=== PATIENT | female | born 1980 | race Caucasian/White ===

== ENCOUNTER 2017-02-24 13:21 | Emergency (ER) | payer BC ==
[~2017-02-24] VITALS: Ht 165.1 cm; Wt 50.8 kg
[2017-02-24 13:33] VITALS: BP 110/67
[2017-02-24] MEDS ORDERED: ASPIRIN 81 MG TAB.CHEW PO ONE (13:45)
[2017-02-24] MEDS ORDERED: IV NORMAL SALINE 1,000ML 1,000 ML IV SCH (14:01)
--- NOTE | 2017-02-24 14:07 | PHYS DOC ---
General Chief Complaint: CHEST PAIN Stated Complaint: CHEST DISCOMFORT Time Seen by MD: 13:28 Source: patient Exam Limitations: no limitations Problems: History of Present Illness Initial Comments Pt is 36/F to ED c/o chest tightness. Pt states that 01/11 this year she was diagnosed breast cancer. She underwent b/ l mastectomy on 01/31 and port placement this past week L chest. She had been doing well until she woke this morning feeling chest tightness. States she has h/o "eating disorder" and anxiety, hasn't been eating/drinking well. She feels her sx likely due to anxiety but she called her doctor this am and they directed her to nearest ED to r/o PE. Pt had seizure during port placement last week, states she saw neurology/CT head. No cause for seizure identified but "they said I probably wouldn't have another one." Timing/Duration: 4-6 hours Severity: moderate Modifying Factors: improves with other Associated Symptoms: chest pain, shortness of breath, other Allergies: Coded Allergies: No Known Drug Allergies (Unverified , 02/24/17) Past Medical History Medical History: other (breast cancer, eating disorder) Surgical History: other (bilateral mastectomy) Social History Smoker: quit greater than 1 year Alcohol: occasionally Drugs: none Review of Systems Constitutional: denies chills, denies fever, denies malaise Respiratory: see HPIdenies cough, denies orthopnea, denies wheezing Cardiovascular: chest paindenies palpitations, denies syncope Gastrointestinal: denies diarrhea, denies nausea, denies vomiting Musculoskeletal: denies back pain, denies joint swelling, denies neck pain Psychiatric/Neurological: see HPIdenies headache, denies numbness, denies paresthesia, denies weakness Hematologic/Lymphatic: denies blood clots, denies easy bleeding, denies easy bruising Physical Exam General Appearance: thin (anxious but NAD) Eyes: bilateral eye EOMI, bilateral eye PERRL, bilateral eye normal inspection Ear, Nose, Throat: hearing grossly normal, normal ENT inspection (dry membranes ), normal pharynx Neck: non-tender, supple Respiratory: normal breath sounds, no respiratory distress, other (post-op tenderness, appropriate) Cardiovascular: regular rate, rhythm, no edema Gastrointestinal: non tender, soft Back: no CVA tenderness, no vertebral tenderness Extremities: non-tender, normal inspection 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 Chest AP: no acute cardiopulmonary process PATIENT: CARO HARDY ACCOUNT: [id number] : 1980 LOCATION: ER AGE: 36 SEX: F EXAM STATUS: REG ER ORD. PHYSICIAN: CARSON LONGORIA DO REASON: breast CA s/p b/l mastectomy 01/31, sudden SOB today PROCEDURE: CTA CHEST EXAM: CT angiogram of the chest with intravenous contrast. HISTORY: Shortness of breath. Breast cancer. TECHNIQUE: Computed tomographic images of the chest were obtained following the administration of 75 cc Omnipaque 300 intravenous contrast. Three-vessel maximum intensity projection images were obtained. One or more of the following individualized dose reduction techniques were utilized for this examination: 1. Automated exposure control. 2. Adjustment of the mA and/or kV according to patient size. 3. Use of iterative reconstruction technique. COMPARISON: None. FINDINGS: There is no evidence of pulmonary embolism. The heart is normal in size. No pathologically enlarged mediastinal or hilar lymph node is seen. There is a left chest wall port catheter with the tip in the superior cavoatrial junction. There are findings consistent with bilateral mastectomies and right axillary lymph node dissection. There is stranding and soft tissue density within the right axilla possibly due to postoperative scarring. There is no pneumothorax or pleural effusion. There is minimal posterior dependent and basilar atelectasis. No suspicious pulmonary nodule is seen. The upper abdomen is unremarkable. There is no suspicious osseous lesion. IMPRESSION: 1. No acute thoracic finding. Specifically, no evidence of pulmonary embolism. 2. Findings is with bilateral mastectomies and right axillary lymph node dissection. There is fatty stranding and increased soft tissue density within the right axilla which may be due to postoperative scarring. 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 Sx resolved after ativan IV. Pt requests discharge, has h/u appt tomorrow with oncology. Departure Time of Disposition: 16:02 Disposition: 01 HOME, SELF-CARE Diagnosis: anxiety, breast CA s/p b/l mastectomy Condition: IMPROVED Patient Instructions: Anxiety and Panic Attacks, [id number] Additional Instructions: Continue current meds including xanax. Rest, no strenuous activity. Follow up with your doctor tomorrow as scheduled; remember to take your lab results and disk of your imaging studies. Return to ED with new or changing symptoms. CARSON LONGORIA DO Feb 24, 2017 14:07
--- NOTE | 2017-02-24 14:18 | EKG ---
[address] [address] Test Date: 2017-02-24 Test Time: 13:50:40 Pat Name: CARO HARDY Department: Room: Gender: F Aligning Checker: JAXSON : 1980 Requested By: CARSON LONGORIA Order Number: [id number] Reading MD: Measurements Intervals [place] Rate: 73 P: 65 NH: 106 QRS: 87 QRSD: 82 T: 46 QT: 426 QTc: 473 Interpretive Statements SINUS RHYTHM R-S TRANSITION ZONE IN V LEADS DISPLACED TO THE LEFT PROLONGED QT NO SPECIFIC ECG ABNORMALITIES RI6.01 Unconfirmed report No previous ECG available for comparison
[2017-02-24] MEDS ORDERED: LIDO:MAALOX 1:1 20 ML SINGLE DOSE PO ONE (14:30)
[2017-02-24] MEDS ORDERED: FAMOTIDINE 20 MG/2 ML VIAL IVP ONE (14:30)
[2017-02-24] MEDS ORDERED: LORAZEPAM 2 MG/ML VIAL IV ONE (14:30)
[2017-02-24 14:34] LABS: BASO % 1 % (0-3); EOS # 0.3 x10^3/uL (0.0-0.7); EOS % 4 % (0-3); HEMATOCRIT 43.5 % (36.0-47.0); HEMOGLOBIN 14.9 g/dL (12.0-15.5); LYMPH # 2.2 x10^3/uL (1.0-4.8); LYMPH % 27 % (24-48); MEAN CORPUSCULAR HEMOGLOBIN 32 pg (25-35); MEAN CORPUSCULAR HGB CONC 34 g/dL (31-37); MEAN CORPUSCULAR VOLUME 93 fL (79-100); MONO # 0.6 x10^3/uL (0.0-1.1); MONO % 7 % (0-9); NEUT # 5.1 x10^3uL (1.8-7.7); NEUT % 62 % (31-73); PLATELET COUNT 287 x10^3/uL (140-400); RED BLOOD COUNT 4.67 x10^6/uL (3.50-5.40); RED CELL DISTRIBUTION WIDTH 12.9 % (11.5-14.5); WHITE BLOOD COUNT 8.3 x10^3/uL (4.0-11.0)
[2017-02-24 14:49] LABS: ALBUMIN 4.2 g/dL (3.4-5.0); ALBUMIN/GLOBULIN RATIO 1.1 (1.0-1.7); CALCIUM 9.2 mg/dL (8.5-10.1); CREATININE 0.8 mg/dL (0.6-1.0); GFR 80.3; POTASSIUM 3.8 mmol/L (3.5-5.1); TOTAL BILIRUBIN 0.3 mg/dL (0.2-1.0)
[2017-02-24 14:53] LABS: AMPHETAMINE/METHAMPHETAMINE NEG (NEG); BARBITURATES NEG (NEG); BENZODIAZEPINES NEG (NEG); CANNABINOIDS NEG (NEG); COCAINE NEG (NEG); METHADONE NEG (NEG); OPIATES NEG (NEG); PHENCYCLIDINE NEG (NEG)
[2017-02-24 14:55] LABS: BILIRUBIN,URINE NEG (NEG); CLARITY,URINE HAZY; COLOR,URINE YELLOW; GLUCOSE,URINE NEG (NEG)
[2017-02-24 14:56] LABS: NITRITE,URINE NEG (NEG); UROBILINOGEN,URINE 0.2 mg/dL (0.2 mg/dL)
[2017-02-24 14:58] LABS: BACTERIA,URINE 0 /HPF (0-FEW); SQUAMOUS EPITHELIAL CELL,UR FEW /LPF; WBC,URINE OCC /HPF (0-4)
[2017-02-24 14:59] LABS: HYALINE CASTS, URINE OCC /HPF
[2017-02-24] MEDS ORDERED: IOHEXOL 300 MG/ML 75 ML VIAL. IV ONE (15:30)
--- NOTE | 2017-02-24 15:45 | RAD ---
EXAM: CT angiogram of the chest with intravenous contrast. HISTORY: Shortness of breath. Breast cancer. TECHNIQUE: Computed tomographic images of the chest were obtained following the administration of 75 cc Omnipaque 300 intravenous contrast. Three-vessel maximum intensity projection images were obtained. One or more of the following individualized dose reduction techniques were utilized for this examination: 1. Automated exposure control. 2. Adjustment of the mA and/or kV according to patient size. 3. Use of iterative reconstruction technique. COMPARISON: None. FINDINGS: There is no evidence of pulmonary embolism. The heart is normal in size. No pathologically enlarged mediastinal or hilar lymph node is seen. There is a left chest wall port catheter with the tip in the superior cavoatrial junction. There are findings consistent with bilateral mastectomies and right axillary lymph node dissection. There is stranding and soft tissue density within the right axilla possibly due to postoperative scarring. There is no pneumothorax or pleural effusion. There is minimal posterior dependent and basilar atelectasis. No suspicious pulmonary nodule is seen. The upper abdomen is unremarkable. There is no suspicious osseous lesion. IMPRESSION: 1. No acute thoracic finding. Specifically, no evidence of pulmonary embolism. 2. Findings is with bilateral mastectomies and right axillary lymph node dissection. There is fatty stranding and increased soft tissue density within the right axilla which may be due to postoperative scarring.
--- NOTE | 2017-02-24 15:46 | RAD ---
EXAM: Chest, single view. HISTORY: Shortness of breath. COMPARISON: None. FINDINGS: A frontal view of the chest is obtained. There is no infiltrate, effusion or pneumothorax. The heart is normal in size. There is a left port catheter with the tip in the superior vena cava. There are bilateral axillary clips and bilateral mastectomies. IMPRESSION: No acute pulmonary finding.
== END 2017-02-24 16:13 | disposition home or self-care (01) ==
LOC: ER 13:21
DX: F41.9 Anxiety disorder, unspecified (principal); R07.89 Other chest pain; Z90.13 Acquired absence of bilateral breasts and nipples; Z87.891 Personal history of nicotine dependence
CPT/HCPCS: 36415; 71010; 71275; 80053; 80305; 81001; 82550; 83605; 83880; 84484; 85027; 85379; 85610; 85730; 87040; 93005; 96361; 96374; 96375; 99285; J2060; S0028; G0481; J7030

== ENCOUNTER 2017-03-21 16:21 | Emergency (ER) | payer BC ==
[~2017-03-21] VITALS: Ht 165.1 cm; Wt 53.1 kg
[2017-03-21] MEDS ORDERED: DIPHTH,PERTUSS(ACELL),TET TOX 0.5 ML DISP.SYRIN. VAX IM ONE (17:00)
[2017-03-21] MEDS ORDERED: ACETAMINOPHEN 500 MG TABLET PO ONE (17:15)
[2017-03-21] MEDS ORDERED: AMOX1TAB61 PO (17:23)
--- NOTE | 2017-03-21 17:23 | PHYS DOC ---
Past History Past Medical History: Cancer Past Surgical History: Cancer Surgery Alcohol Use: Occasionally Drug Use: None Adult General Chief Complaint Chief Complaint: ANIMAL BITE HPI HPI 36-year-old female who presents after she picked up a squirrel from the ground that was injured and had a small bite to her right index finger. She has a small skin bite to the distal portion of the dorsum of the right index finger just distal to the PIP joint of that finger. Patient is currently undergoing chemotherapy for breast CA. She is also status post masectomy for this in the last several months. She denies any significant medical problems otherwise. She has full range of motion in the affected digit. She has full sensation distal to the injury. Review of Systems Review of Systems Constitutional: Denies fever or chills [] Eyes: Denies change in visual acuity, redness, or eye pain [] HENT: Denies nasal congestion or sore throat [] Respiratory: Denies cough or shortness of breath [] Cardiovascular: No additional information not addressed in HPI [] GI: Denies abdominal pain, nausea, vomiting, bloody stools or diarrhea [] : Denies dysuria or hematuria [] Musculoskeletal: Denies back pain or joint pain [] Integument: Denies rash or skin lesions [] Neurologic: Denies headache, focal weakness or sensory changes [] Endocrine: Denies polyuria or polydipsia [] Current Medications Current Medications Current Medications Medications (Trade) Dose Ordered Sig/Kaylyn Start Time Stop Time Status Last Admin Dose Admin Acetaminophen (Tylenol) 1,000 mg 1X ONCE 03/21/17 17:15 03/21/17 17:16 03/21/17 16:58 1,000 MG Amoxicillin/ Clavulanate Potassium (Augmentin 875/ 125mg) 1 tab 1X ONCE 03/21/17 17:15 03/21/17 17:16 UNV Diphtheria/ Tetanus/Acell Pertussis (Boostrix) 0.5 ml ONCE ONCE 03/21/17 17:00 03/21/17 17:01 DC 03/21/17 16:58 0.5 ML Allergies Allergies Allergies Coded Allergies Type Severity Reaction Last Updated Verified No Known Drug Allergies 02/24/17 No Physical Exam Physical Exam Constitutional: Well developed, well nourished, no acute distress, non-toxic appearance. [] HENT: Normocephalic, atraumatic, bilateral external ears normal, oropharynx moist, no oral exudates, nose normal. [] Eyes: PERRLA, EOMI, conjunctiva normal, no discharge. [] Neck: Normal range of motion, no tenderness, supple, no stridor. [] Cardiovascular:Heart rate regular rhythm, no murmur [] Lungs & Thorax: Bilateral breath sounds clear to auscultation [] Abdomen: Bowel sounds normal, soft, no tenderness, no masses, no pulsatile masses. [] Skin: Warm, dry, no erythema, no rash. [] Back: No tenderness, no CVA tenderness. [] Extremities: Tenderness to the right index finger with a small bite wound to the area distal to the dorsum of the PIP joint, there is no significant swelling or deformity, there is no purulence noted, no cyanosis, no clubbing, ROM intact, no edema. [] Neurologic: Alert and oriented X 3, normal motor function, normal sensory function, no focal deficits noted. [] Psychologic: Affect normal, judgement normal, mood normal. [] Current Patient Data Vital Signs Vital Signs Date Time Temp Pulse Resp B/P Pulse Ox O2 Delivery O2 Flow Rate FiO2 03/21/17 16:21 98.5 80 20 96 Room Air EKG EKG [] Radiology/Procedures Radiology/Procedures [] Course & Med Decision Making Course & Med Decision Making Pertinent Labs and Imaging studies reviewed. (See chart for details) This 36 yo female who had a bite wound from a squirrel had the wound fully irrigated and her tetanus updated. Her first dose of antibiotics were given. She 'll be sent out with a prescription for antibiotics and told to follow closely with her primary care doctor in the next several days for wound eval. Return precautions were provided and acknowledged by the patient. Dragon Disclaimer Dragon Disclaimer This chart was dictated in whole or in part using Voice Recognition software in a busy, high-work load, and often noisy Emergency Department environment. It may contain unintended and wholly unrecognized errors or omissions. Departure Departure: Impression: Primary Impression: Bite wound Disposition: 01 HOME, SELF-CARE Condition: IMPROVED Referrals: HIEN WOLF (PCP) Patient Instructions: Animal Bite, [id number] Additional Instructions: Please take your antibiotic as prescribed. Return to the ER if you develop any worsening redness or pain or noticed any increase in swelling or pus drainage. Have your wound reevaluated by your primary care doctor in the next 2-3 days. Scripts Amoxicillin/Potassium Clav (Augmentin 875-125 Tablet)1 Each Tablet1 Tab PO BID # 20 TAB Prov:VANESSA NUNEZ DO 03/21/17 VANESSA NUNEZ DO Mar 21, 2017 17:23
[2017-03-21 17:24] VITALS: BP 100/55
[2017-03-21] MEDS ORDERED: AMOXICILLIN/K CLAV 875/125MG TABLET. PO ONE (17:30)
== END 2017-03-21 17:30 | disposition home or self-care (01) ==
LOC: ER 16:21
DX: S61.250A Open bite of right index finger without damage to nail, initial encounter (principal); Z85.3 Personal history of malignant neoplasm of breast; W53.21XA Bitten by squirrel, initial encounter; Y93.89 Activity, other specified; Y92.89 Other specified places as the place of occurrence of the external cause; Y99.8 Other external cause status
CPT/HCPCS: 90471; 90715; 99283-25

== ENCOUNTER 2017-04-18 06:07 | Emergency (ER) | payer BC ==
[~2017-04-18] VITALS: Ht 165.1 cm; Wt 53.1 kg
[~2017-04-18 06:07] MED LIST: AMOX1TAB61 PO
[2017-04-18] MEDS ORDERED: ONDANSETRON PF 4 MG/2 ML VIAL. IV ONE (07:00)
[2017-04-18] MEDS ORDERED: IV NORMAL SALINE 1,000ML 1,000 ML IV SCH (07:00)
[2017-04-18 07:09] LABS: BASO % 1 % (0-3); EOS # 0.1 x10^3/uL (0.0-0.7); EOS % 4 % (0-3); HEMATOCRIT 28.5 % (36.0-47.0); LYMPH # 0.9 x10^3/uL (1.0-4.8); LYMPH % 40 % (24-48); MEAN CORPUSCULAR HEMOGLOBIN 32 pg (25-35); MEAN CORPUSCULAR HGB CONC 35 g/dL (31-37); MEAN CORPUSCULAR VOLUME 92 fL (79-100); MONO % 1 % (0-9); NEUT # 1.2 x10^3uL (1.8-7.7); NEUT % 55 % (31-73); PLATELET COUNT 56 x10^3/uL (140-400); RED BLOOD COUNT 3.11 x10^6/uL (3.50-5.40); RED CELL DISTRIBUTION WIDTH 13.5 % (11.5-14.5); WHITE BLOOD COUNT 2.3 x10^3/uL (4.0-11.0)
[2017-04-18 07:15] LABS: CALCIUM 8.5 mg/dL (8.5-10.1); CREATININE 0.5 mg/dL (0.6-1.0); GFR 138.1; POTASSIUM 3.8 mmol/L (3.5-5.1)
[2017-04-18] MEDS: MORPHINE SULFATE 4 MG/ML DISP.SYRIN. IV/SQ PRN ×3 (07:31→09:52)
[2017-04-18 08:28] LABS: % ATYL 1 % (0-0); % BANDS 5 % (0-9); % BASOS 1 % (0-3); % EOS 3 % (0-5); % LYMPHS 51 % (24-48); % MONOS 4 % (0-10); % SEGS 35 % (35-66); MICROCYTOSIS PRESENT; PLT ESTIMATE DECREASED (ADEQUATE); TOXIC GRANULATION PRESENT
--- NOTE | 2017-04-18 08:35 | RAD ---
Indication nausea and abdominal pain. A single view of the chest as well as flat and upright films of the abdomen were obtained. The chest is compared to a study 02/24/2017. The heart and pulmonary vessels appear normal. The lungs are clear of acute infiltrates. Significant pleural fluid is not seen. There is no pneumothorax. A left Port-A-Cath is noted. The graft there is no free air. The abdominal gas pattern is normal. No organomegaly or abnormal calculi are seen. IMPRESSION: No acute finding seen in the chest or abdomen on plain films
[2017-04-18] MEDS ORDERED: LIDO:MAALOX 1:1 20 ML SINGLE DOSE PO ONE (08:45)
--- NOTE | 2017-04-18 08:47 | RAD ---
CT of the head without contrast, 04/18/2017: History: Headache, nausea, breast cancer The ventricles are within normal limits in size. There is no shift of the midline structures. There is no evidence of acute intracranial hemorrhage or mass effect. IMPRESSION: 1. The CT of the head without contrast reveals no significant abnormality. 2. If there is a high clinical suspicion of an occult intracranial metastasis, MR scanning with gadolinium would be more a sensitive method of further evaluation. PQRS Compliance Statement: One or more of the following individualized dose reduction techniques were utilized for this examination: 1. Automated exposure control 2. Adjustment of the mA and/or kV according to patient size 3. Use of iterative reconstruction technique
--- NOTE | 2017-04-18 09:22 | PHYS DOC ---
General Chief Complaint: HEADACHE Stated Complaint: SEVERE HEADACHE,NAUSEA X 3 DAYS Time Seen by MD: 06:20 Source: patient Exam Limitations: no limitations Problems: History of Present Illness Initial Comments Pt is 36/F to ED c/o RAJPUT, nausea. Pt currently being treated for breast CA, has L chest port for chemo. Past 3 days pt with global RAJPUT worse with activity, nausea. Pt has h/o migraines, states this RAJPUT is different--much worse. No focal neurodefs, no unexplained wt loss. Oxycodone last night helped, RAJPUT still present upon waking this am. Has been eating/drinking less as she is usually sick to her stomach few days after chemo. Timing/Duration: constant (3 days) Severity: moderate Modifying Factors: worse with movement, improves with rest Associated Symptoms: headaches, malaise, nausea/vomiting Allergies: Coded Allergies: No Known Drug Allergies (Unverified , 02/24/17) Past Medical History Medical History: other (breast ca) Surgical History: other (mastectomy, port) Social History Smoker: non-smoker Alcohol: none Drugs: none Review of Systems Constitutional: denies chills, denies fever, malaise EENTM: denies eye pain, denies ear pain, denies throat swelling, denies mouth pain, denies mouth swelling Respiratory: denies cough, denies shortness of breath Cardiovascular: denies chest pain, denies palpitations Gastrointestinal: denies abdominal pain, denies diarrhea, nausea, denies vomiting Genitourinary: see HPI Musculoskeletal: denies back pain, denies joint swelling, denies neck pain Psychiatric/Neurological: headache, denies numbness, denies paresthesia Physical Exam General Appearance: moderate distress, thin Eyes: bilateral eye normal inspection, bilateral eye PERRL, bilateral eye EOMI Ear, Nose, Throat: hearing grossly normal, normal ENT inspection (dry membranes ) Neck: non-tender, supple Respiratory: normal breath sounds, no respiratory distress Cardiovascular: normal peripheral pulses, regular rate, rhythm Gastrointestinal: non tender, soft Back: no CVA tenderness, no vertebral tenderness Extremities: non-tender, normal inspection 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 PHYSICIAN: CARSON LONGORIA DO REASON: RAJPUT h/o breast ca PROCEDURE: CT HEAD WO CONTRAST CT of the head without contrast, 04/18/2017: History: Headache, nausea, breast cancer The ventricles are within normal limits in size. There is no shift of the midline structures. There is no evidence of acute intracranial hemorrhage or mass effect. IMPRESSION: 1. The CT of the head without contrast reveals no significant abnormality. 2. If there is a high clinical suspicion of an occult intracranial metastasis, MR scanning with gadolinium would be more a sensitive method of further evaluation. PQRS Compliance Statement: One or more of the following individualized dose reduction techniques were utilized for this examination: 1. Automated exposure control 2. Adjustment of the mA and/or kV according to patient size 3. Use of iterative reconstruction technique DICTATED AND SIGNED BY: QUINN LILLY MD DATE: 04/18/17842 CC: CARSON LONGORIA DO; HIEN WOLF ~ PATIENT: CARO HARDY ACCOUNT: [id number] : 1980 LOCATION: ER AGE: 36 SEX: F EXAM STATUS: REG ER ORD. PHYSICIAN: CARSON LONGORIA DO REASON: abd pain PROCEDURE: ACUTE ABDOMEN SERIES Indication nausea and abdominal pain. A single view of the chest as well as flat and upright films of the abdomen were obtained. The chest is compared to a study 02/24/2017. The heart and pulmonary vessels appear normal. The lungs are clear of acute infiltrates. Significant pleural fluid is not seen. There is no pneumothorax. A left Port-A-Cath is noted. The graft there is no free air. The abdominal gas pattern is normal. No organomegaly or abnormal calculi are seen. IMPRESSION: No acute finding seen in the chest or abdomen on plain films DICTATED AND SIGNED BY: KEVIN PEPPER MD DATE: 04/18/17829 CC: CARSON LONGORIA DO; HIEN WOLF ~ AAS: Images reviewed by me, no acute process WBC 2.3, Hb 10, Plt 56, (pancytopenia 2nd chemotherapy) otherwise unremarkable Pt feeling much better after results and IV fluids. She expressed agreement/ understanding with treatment plan. Departure Time of Disposition: 10:15 Disposition: 01 HOME, SELF-CARE Diagnosis: Headache, abdominal pain NOS Condition: STABLE Patient Instructions: Abdominal Pain (Nonspecific), Chemotherapy, General Headache Without Cause, [id number] Additional Instructions: Rest, no strenuous activity. Aggressive hydration with gatorade, water. Rx: percocet 7.5mg #20 Take meds with food and stool softeners. Follow up with your doctor by phone today, then follow up as directed. Return to ED with new or changing symptoms. CARSON LONGORIA DO April 18, 2017 09:22
[2017-04-18 10:03] LABS: BILIRUBIN,URINE NEG (NEG); CLARITY,URINE HAZY; COLOR,URINE YELLOW; GLUCOSE,URINE NEG (NEG); UROBILINOGEN,URINE 1 mg/dL (0.2 mg/dL)
[2017-04-18 10:04] LABS: BACTERIA,URINE FEW /HPF (0-FEW); HYALINE CASTS, URINE OCC /HPF; NITRITE,URINE NEG (NEG); RBC,URINE RARE /HPF (0-2); SQUAMOUS EPITHELIAL CELL,UR FEW /LPF
[2017-04-18] MEDS ORDERED: OXYC-327 PO (10:18)
[2017-04-18 10:20] VITALS: BP 102/62
== END 2017-04-18 10:50 | disposition home or self-care (01) ==
LOC: ER 06:07
DX: R51 Headache (principal); R10.9 Unspecified abdominal pain; R07.89 Other chest pain; Z85.3 Personal history of malignant neoplasm of breast
CPT/HCPCS: 36415; 70450; 74022; 80048; 81001; 82550; 83690; 84484; 85007; 85027; 87086; 96361; 96374; 96375; 96376; 99285; J2270; J2405; J7030

== ENCOUNTER 2017-09-23 14:42 | Emergency (ER) | payer BC ==
[~2017-09-23] VITALS: Ht 165.1 cm; Wt 53.1 kg
[~2017-09-23 14:42] MED LIST changes: +OXYC-327 PO
[2017-09-23] MEDS ORDERED: IPRATRPIUM/ALBUTEROL 0.5/2.5MG 3 ML NEBU. NEB ONE (15:15)
[2017-09-23] MEDS ORDERED: ASPIRIN 81 MG TAB.CHEW PO ONE (15:15)
[2017-09-23] MEDS ORDERED: NITROGLYCERIN SUBLINGUAL 0.4 MG BOTTLE OF 25. SL PRN (15:15)
[2017-09-23 15:36] LABS: BASO % 0 % (0-3); EOS % 1 % (0-3); HEMATOCRIT 41.7 % (36.0-47.0); HEMOGLOBIN 14.3 g/dL (12.0-15.5); LYMPH # 1.4 x10^3/uL (1.0-4.8); LYMPH % 21 % (24-48); MEAN CORPUSCULAR HEMOGLOBIN 31 pg (25-35); MEAN CORPUSCULAR HGB CONC 34 g/dL (31-37); MEAN CORPUSCULAR VOLUME 89 fL (79-100); MONO # 0.4 x10^3/uL (0.0-1.1); MONO % 6 % (0-9); NEUT # 4.8 x10^3uL (1.8-7.7); NEUT % 73 % (31-73); PLATELET COUNT 246 x10^3/uL (140-400); RED BLOOD COUNT 4.68 x10^6/uL (3.50-5.40); RED CELL DISTRIBUTION WIDTH 14.4 % (11.5-14.5); WHITE BLOOD COUNT 6.6 x10^3/uL (4.0-11.0)
[2017-09-23 15:40] LABS: AMPHETAMINE/METHAMPHETAMINE NEG (NEG); BARBITURATES NEG (NEG); BENZODIAZEPINES NEG (NEG); CANNABINOIDS NEG (NEG); COCAINE NEG (NEG); METHADONE NEG (NEG); OPIATES NEG (NEG); PHENCYCLIDINE NEG (NEG)
[2017-09-23 15:53] LABS: ALBUMIN 4.3 g/dL (3.4-5.0); ALBUMIN/GLOBULIN RATIO 1.2 (1.0-1.7); CALCIUM 9.2 mg/dL (8.5-10.1); CREATININE 0.7 mg/dL (0.6-1.0); GFR 93.6; POTASSIUM 3.6 mmol/L (3.5-5.1); TOTAL BILIRUBIN 0.5 mg/dL (0.2-1.0); TOTAL PROTEIN 7.8 g/dL (6.4-8.2)
[2017-09-23 16:01] LABS: BACTERIA,URINE FEW /HPF (0-FEW); BILIRUBIN,URINE NEG (NEG); CLARITY,URINE CLEAR; COLOR,URINE STRAW; GLUCOSE,URINE NEG (NEG); NITRITE,URINE NEG (NEG); SQUAMOUS EPITHELIAL CELL,UR MANY /LPF; UROBILINOGEN,URINE 0.2 mg/dL (0.2 mg/dL)
--- NOTE | 2017-09-23 16:01 | RAD ---
Indication chest pain. Productive cough. Prior history of bilateral mastectomy. Frontal and lateral views of the chest were obtained and are compared to a study 04/18/2017. The heart, pulmonary vessels and mediastinum appear normal. The lungs are clear. Bony structures appear intact. Port-A-Cath is no longer seen. IMPRESSION: No acute finding in the chest
--- NOTE | 2017-09-23 16:21 | PHYS DOC ---
General Chief Complaint: CHEST PAIN Stated Complaint: CHEST PAIN Time Seen by MD: 14:49 Source: patient, old records Exam Limitations: no limitations Problems: History of Present Illness Initial Comments Patient is a 36-year-old female with history of breast cancer now in remission who comes to the emergency department with cough and chest tightness. Patient states that last night he developed a dry cough and chest tightness first noticed at 2200. She has had those symptoms persistently since that time, no sputum production fever chills or body aches, she states she had some diaphoresis last night that is her baseline. No nausea vomiting arm or neck symptoms and she denies shortness of breath or dyspnea on exertion. She denies new recent weight loss, she has history of right breast cancer status post bilateral mastectomy performed January 31, 2017. Her last chemotherapy treatment was July 03, 2017 she is currently taking tamoxifen. No new or progressive symptoms since 2200 last night, vital signs are normal in the emergency department she is afebrile no hypoxia. Symptoms did not improve with aspirin and nitroglycerin by mouth. Timing/Duration: intermittent Severity: mild Modifying Factors: improves with other Associated Symptoms: chest pain, cough, diaphoresis Allergies: Coded Allergies: No Known Drug Allergies (Unverified , 02/24/17) Past Medical History Medical History: other (anxiety, breast cancer, depression) Surgical History: noncontributory (bilateral mastectomy), other Social History Smoker: non-smoker Alcohol: none Drugs: none Review of Systems Constitutional: denies chills, diaphoresis, denies fever, denies malaise EENTM: denies ear pain, denies nose pain, denies nose congestion, denies throat pain, denies mouth pain Respiratory: cough, denies orthopnea, denies shortness of breath, denies wheezing Cardiovascular: chest pain, denies palpitations, denies syncope Gastrointestinal: denies abdominal pain, denies nausea, denies vomiting Musculoskeletal: denies back pain, denies joint swelling, denies neck pain Psychiatric/Neurological: denies headache, denies numbness, denies paresthesia Hematologic/Lymphatic: denies blood clots, denies easy bleeding, denies easy bruising Physical Exam General Appearance: no apparent distress, thin Ear, Nose, Throat: hearing grossly normal, normal ENT inspection, normal pharynx Neck: non-tender, supple Respiratory: other (patient received DuoNeb on arrival, evaluation after DuoNeb reveals lungs are clear good air movement no rales rhonchi or wheezes no respiratory distress chest is nontender) Cardiovascular: normal peripheral pulses, regular rate, rhythm, no edema Gastrointestinal: non tender, soft Back: no CVA tenderness, no vertebral tenderness Extremities: non-tender, normal inspection, no pedal edema 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 PHYSICIAN: CARSON LONGORIA DO REASON: cp PROCEDURE: CHEST PA & LATERAL Indication chest pain. Productive cough. Prior history of bilateral mastectomy. Frontal and lateral views of the chest were obtained and are compared to a study 04/18/2017. The heart, pulmonary vessels and mediastinum appear normal. The lungs are clear. Bony structures appear intact. Port-A-Cath is no longer seen. IMPRESSION: No acute finding in the chest DICTATED AND SIGNED BY: KEVIN PEPPER MD DATE: 09/23/17 1557 CC: CARSON LONGORIA DO; HIEN WOLF COMPUTER ENGINEERING TECHNOLOGIST-C ~ Labs unremarkable, BNP 137 urinalysis contaminated with squamous cells culture and sensitivity pending. I discussed results with the patient at length. Given her improvement with DuoNeb, reassuring lab evaluation greater than 12 hours after symptom onset no emergent cause identified. Because of her immunocompromised status we'll discharge home with Z-Demarcus and for symptomatic treatment of albuterol inhaler. First dose of Zithromax given in the emergency department. Signs and symptoms to monitor, indications for urgent return discussed at length with the patient. Her questions were answered she agrees to follow-up and expressed agreement and understanding of treatment plan. Departure Time of Disposition: 17:03 Disposition: 01 HOME, SELF-CARE Diagnosis: bronchitis with bronchial restriction, immunocompr Condition: IMPROVED Patient Instructions: Acute Bronchitis, [id number] Additional Instructions: Activity as tolerated, avoid environmental allergens, smoke, and extremes of temperature. Continue current medications. [id number] cetirizine and a.m., diphenhydramine 4 PM symptoms. Prescription: Zithromax, albuterol inhaler Follow-up with your doctor in 2-3 days for recheck. Return to the ED with new or changing symptoms. CARSON LONGORIA DO Sep 23, 2017 16:21
[2017-09-23] MEDS ORDERED: AZIT250T PO (16:53)
[2017-09-23] MEDS ORDERED: ALBU18HF IH (16:55)
[2017-09-23 17:00] VITALS: BP 118/54
[2017-09-23] MEDS ORDERED: AZITHROMYCIN 250 MG TABLET. PO ONE (17:15)
--- NOTE | 2017-09-23 18:24 | EKG ---
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
== END 2017-09-23 17:09 | disposition home or self-care (01) ==
LOC: ER 14:42
DX: J40 Bronchitis, not specified as acute or chronic (principal); F41.9 Anxiety disorder, unspecified; F32.9 Major depressive disorder, single episode, unspecified; Z90.13 Acquired absence of bilateral breasts and nipples
CPT/HCPCS: 36415; 71020; 80053; 80307; 81001; 82550; 83880; 84484; 85025; 87086; 93005; 94640; 99285; J0456; J7620; G0479

== ENCOUNTER 2018-05-05 15:57 | Emergency (ER) | payer BC ==
[~2018-05-05] VITALS: Ht 165.1 cm; Wt 57.5 kg
[2018-05-05 15:57] VITALS: BP 126/71
[~2018-05-05 15:57] MED LIST changes: +ALBU18HF IH; +AZIT250T PO
[2018-05-05 16:45] LABS: BASO % 0 % (0-3); EOS % 0 % (0-3); HEMATOCRIT 40.2 % (36.0-47.0); HEMOGLOBIN 14.2 g/dL (12.0-15.5); LYMPH # 0.8 x10^3/uL (1.0-4.8); LYMPH % 11 % (24-48); MEAN CORPUSCULAR HEMOGLOBIN 33 pg (25-35); MEAN CORPUSCULAR HGB CONC 35 g/dL (31-37); MEAN CORPUSCULAR VOLUME 93 fL (79-100); MONO # 0.3 x10^3/uL (0.0-1.1); MONO % 5 % (0-9); NEUT # 5.7 x10^3uL (1.8-7.7); NEUT % 84 % (31-73); PLATELET COUNT 371 x10^3/uL (140-400); RED BLOOD COUNT 4.32 x10^6/uL (3.50-5.40); RED CELL DISTRIBUTION WIDTH 12.1 % (11.5-14.5); WHITE BLOOD COUNT 6.9 x10^3/uL (4.0-11.0)
[2018-05-05] MEDS ORDERED: HALOPERIDOL LACT 5 MG/ML VIAL. IVP ONE (16:45)
--- NOTE | 2018-05-05 16:55 | ED.ADGEN ---
Past History Past Medical History: Anxiety, Cancer, Depression, Other Past Surgical History: Cancer Surgery, Other Alcohol Use: None Drug Use: None Adult General Chief Complaint Chief Complaint Abdominal pain HPI HPI Patient is a 37-year-old female with history of anxiety depression, breast cancer with double mastectomy currently in remission who presents with intermittent epigastric pain described as sharp, protracted radiating under diagram. Pain is moderate to severe. Symptoms began this afternoon while running and treadmill. No nausea vomiting, constipation diarrhea. No medications or therapy sticking prior to ED arrival. Patient states she has previously been worked up for similar pain but that no diagnosis has been made. Prior abdominal surgeries. Patient had menstrual periods since completing chemotherapy. Rise by private vehicle.[] Review of Systems Review of Systems ROS as per HPI[] All other systems were reviewed and found to be within normal limits, except as documented in this note. Current Medications Current Medications Current Medications Medications (Trade) Dose Ordered Sig/Kaylyn Start Time Stop Time Status Last Admin Dose Admin Haloperidol Lactate (Haldol) 2.5 mg 1X ONCE 05/05/18 16:45 05/05/18 16:47 DC 05/05/18 16:32 2.5 MG Allergies Allergies Allergies Coded Allergies Type Severity Reaction Last Updated Verified No Known Drug Allergies 02/24/17 No Physical Exam Physical Exam Constitutional: Well developed, well nourished, moderate discomfort secondary to pain[] HENT: Normocephalic, atraumatic, bilateral external ears normal, oropharynx moist, no oral exudates, nose normal. [] Eyes: PERRLA, EOMI, conjunctiva normal, no discharge. [] Neck: Normal range of motion, no tenderness, supple, no stridor. [] Cardiovascular:Heart rate regular rhythm, no murmur [] Lungs & Thorax: Bilateral breath sounds clear to auscultation. Bilateral mastectomy [] Abdomen: Bowel sounds normal, soft, epigastric pain tenderness, no rigidity or guarding.. [] Skin: Warm, dry, no erythema, no rash. [ Extremities: No tenderness.. [] Neurologic: Alert and oriented X 3, normal motor function, normal sensory function, no focal deficits noted. [] Psychologic: Affect, anxious.[] Current Patient Data Vital Signs Vital Signs Date Time Temp Pulse Resp B/P (MAP) Pulse Ox O2 Delivery O2 Flow Rate FiO2 6/11/18 15:57 98.6 109 20 96 Room Air Lab Results Laboratory Tests Test 05/05/18 16:15 05/05/18 16:20 05/05/18 16:30 05/05/18 16:40 Urine Collection Type Unknown Urine Color Yellow Urine Clarity Hazy Urine pH 5.0 Urine Specific [place] 1.015 Urine Protein 30 mg/dl (NEG-TRACE) Urine Glucose (UA) Neg mg/dL (NEG) Urine Ketones (Stick) 15 mg/dL (NEG) Urine Blood Small (NEG) Urine Nitrite Neg (NEG) Urine Bilirubin Neg (NEG) Urine Urobilinogen Dipstick 0.2 mg/dL (0.2 mg/dL) Urine Leukocyte Esterase Neg (NEG) Urine RBC 6-10 /HPF (0-2) Urine WBC 5-10 /HPF (0-4) Urine Squamous Epithelial Cells Many /LPF Urine Bacteria Mod /HPF (0-FEW) Urine Hyaline Casts Few /HPF Urine Mucus Slight /LPF White Blood Count 6.9 x10^3/uL (4.0-11.0) Red Blood Count 4.32 x10^6/uL (3.50-5.40) Hemoglobin 14.2 g/dL (12.0-15.5) Hematocrit 40.2 % (36.0-47.0) Mean Corpuscular Volume 93 fL (79-100) Mean Corpuscular Hemoglobin 33 pg (25-35) Mean Corpuscular Hemoglobin Concent 35 g/dL (31-37) Red Cell Distribution Width 12.1 % (11.5-14.5) Platelet Count 371 x10^3/uL (140-400) Neutrophils (%) (Auto) 84 % (31-73) H Lymphocytes (%) (Auto) 11 % (24-48) L Monocytes (%) (Auto) 5 % (0-9) Eosinophils (%) (Auto) 0 % (0-3) Basophils (%) (Auto) 0 % (0-3) Neutrophils # (Auto) 5.7 x10^3uL (1.8-7.7) Lymphocytes # (Auto) 0.8 x10^3/uL (1.0-4.8) L Monocytes # (Auto) 0.3 x10^3/uL (0.0-1.1) Eosinophils # (Auto) 0.0 x10^3/uL (0.0-0.7) Basophils # (Auto) 0.0 x10^3/uL (0.0-0.2) Sodium Level 138 mmol/L (136-145) Potassium Level 4.1 mmol/L (3.5-5.1) Chloride Level 101 mmol/L (98-107) Carbon Dioxide Level 25 mmol/L (21-32) Anion Gap 12 (6-14) Blood Urea Nitrogen 11 mg/dL (7-20) Creatinine 0.8 mg/dL (0.6-1.0) Estimated GFR (Cockcroft-Gault) 79.9 BUN/Creatinine Ratio 14 (6-20) Glucose Level 88 mg/dL (70-99) Calcium Level 8.8 mg/dL (8.5-10.1) Total Bilirubin 0.4 mg/dL (0.2-1.0) Aspartate Amino Transferase (AST) 26 U/L (15-37) Alanine Aminotransferase (ALT) 41 U/L (14-59) Alkaline Phosphatase 76 U/L (46-116) Total Protein 7.9 g/dL (6.4-8.2) Albumin 4.2 g/dL (3.4-5.0) Albumin/Globulin Ratio 1.1 (1.0-1.7) Lipase 203 U/L (73-393) Serum Test, Qualitative Negative (NEG) EKG EKG [] Radiology/Procedures Radiology/Procedures [] Course & Med Decision Making Course & Med Decision Making Pertinent Labs and Imaging studies reviewed. (See chart for details) [Patient's nondescript abdominal pain. Symptoms improved with Haldol. However, patient does not wish to complete workup. Patient understands limitations of current diagnosis and possibility of missed diagnosis. Patient agrees to follow- up with her primary care physician. She is encouraged to return to the ED should she change her mind regarding further workup in the emergency department. ] Final Impression Final Impression [1. abdominal pain] Dragmilo Disclaimer Dragon Disclaimer This electronic medical record was generated, in whole or in part, using a voice recognition dictation system. DELILAH LACKEY DO May 05, 2018 16:54
[2018-05-05 16:57] LABS: ALBUMIN 4.2 g/dL (3.4-5.0); ALBUMIN/GLOBULIN RATIO 1.1 (1.0-1.7); CALCIUM 8.8 mg/dL (8.5-10.1); CREATININE 0.8 mg/dL (0.6-1.0); GFR 79.9; POTASSIUM 4.1 mmol/L (3.5-5.1); TOTAL BILIRUBIN 0.4 mg/dL (0.2-1.0); TOTAL PROTEIN 7.9 g/dL (6.4-8.2)
[2018-05-05 17:04] LABS: PREG TEST PT QUAL NEGATIVE (NEG)
[2018-05-05 17:14] LABS: BACTERIA,URINE MOD /HPF (0-FEW); BILIRUBIN,URINE NEG (NEG); CLARITY,URINE HAZY; COLOR,URINE YELLOW; GLUCOSE,URINE NEG (NEG); NITRITE,URINE NEG (NEG); SQUAMOUS EPITHELIAL CELL,UR MANY /LPF; UROBILINOGEN,URINE 0.2 mg/dL (0.2 mg/dL)
[2018-05-05 17:15] LABS: HYALINE CASTS, URINE FEW /HPF
== END 2018-05-05 16:52 | disposition left against medical advice (07) ==
LOC: ER 15:57
DX: R10.13 Epigastric pain (principal)
CPT/HCPCS: 36415; 80053; 81001; 83690; 84703; 85025; 87086; 96374; 99284; J1630

== ENCOUNTER → 2018-06-02 | Outpatient (CLI) | payer BC ==
[2018-05-05 15:57] VITALS: BP 126/71
[~2018-06-02] MED LIST changes: +IOHEXOL 300 MG/ML 75 ML VIAL. IV ONE
--- NOTE | 2018-06-02 09:57 | RAD ---
CT ABD PELV W/ORAL IV CONTRAST dated 06/02/2018 9:23 AM Indication: Abdominal pain, diarrheaOmni 300, 75ml IV. Omni 240, 30ml PO. LLQ pain, abdominal distension and pain. Constipation, diarrhea. Hx breast cancer w/ double mastectomy, cholecystectomy. Comparison: No comparison is available. Technique: Contiguous axial imaging of the abdomen and pelvis performed after the administration of 75 cc Isovue-370. One or more of the following individualized dose reduction techniques were utilized for this examination: 1. Automated exposure control 2. Adjustment of the mA and/or kV according to patient size 3. Use of iterative reconstruction technique Findings: Limited images of lung bases are clear. Heart size within normal limits. No pleural or pericardial effusion. Liver, spleen, pancreas, adrenal glands and kidneys are unremarkable. No hydronephrosis. Partially opacified GI tract normal in caliber and contour. No focal bowel wall thickening. The appendix is not clearly identified. No inflammatory changes in the right lower quadrant. Moderate stool throughout the colon. No ascites or lymphadenopathy. Abdominal aorta normal in caliber. Images of pelvis show nondistended urinary bladder. Uterus and adnexa are unremarkable. No free fluid or lymphadenopathy. Bone windows show no acute findings. IMPRESSION: 1. No acute abnormality of abdomen or pelvis. 2. Moderate stool throughout the colon. 3. The appendix is not clearly identified. No inflammatory changes in the right lower quadrant. Electronically signed by: Collin Landeros MD (06/02/2018 9:54 AM) [id number]
== END | disposition home or self-care (01) ==
LOC: CT 08:12
PROVIDERS: ATTEND Nurse Practitioner Family
DX: R10.32 Left lower quadrant pain (principal); R14.0 Abdominal distension (gaseous); Z85.3 Personal history of malignant neoplasm of breast
CPT/HCPCS: 74177

== ENCOUNTER 2018-09-06 08:30 | Emergency (ER) | payer BC ==
[~2018-09-06] VITALS: Ht 165.1 cm; Wt 56.2 kg
[~2018-09-06 08:30] MED LIST changes: -IOHEXOL 300 MG/ML 75 ML VIAL. IV ONE
[2018-09-06] MEDS ORDERED: ONDANSETRON ODT 4 MG TAB.RAPDIS ONE (08:46)
[2018-09-06] MEDS ORDERED: ONDANSETRON ODT 4 MG TAB.RAPDIS PO ONE (09:00)
[2018-09-06] MEDS ORDERED: IV NORMAL SALINE 1,000ML 1,000 ML IV SCH (09:10)
[2018-09-06] MEDS ORDERED: PROCHLORPERAZINE 10 MG/2 ML VIAL. IV ONE (09:15)
[2018-09-06 09:24] LABS: BASO % 0 % (0-3); EOS % 0 % (0-3); HEMATOCRIT 39.6 % (36.0-47.0); HEMOGLOBIN 13.8 g/dL (12.0-15.5); LYMPH # 0.7 x10^3/uL (1.0-4.8); LYMPH % 7 % (24-48); MEAN CORPUSCULAR HEMOGLOBIN 33 pg (25-35); MEAN CORPUSCULAR HGB CONC 35 g/dL (31-37); MEAN CORPUSCULAR VOLUME 93 fL (79-100); MONO # 0.2 x10^3/uL (0.0-1.1); MONO % 3 % (0-9); NEUT # 8.2 x10^3uL (1.8-7.7); NEUT % 90 % (31-73); PLATELET COUNT 266 x10^3/uL (140-400); RED BLOOD COUNT 4.25 x10^6/uL (3.50-5.40); RED CELL DISTRIBUTION WIDTH 12.4 % (11.5-14.5); WHITE BLOOD COUNT 9.2 x10^3/uL (4.0-11.0)
[2018-09-06 09:39] LABS: ALBUMIN 4.1 g/dL (3.4-5.0); ALBUMIN/GLOBULIN RATIO 1.3 (1.0-1.7); CALCIUM 8.7 mg/dL (8.5-10.1); CREATININE 0.6 mg/dL (0.6-1.0); GFR 111.3; TOTAL BILIRUBIN 0.3 mg/dL (0.2-1.0); TOTAL PROTEIN 7.2 g/dL (6.4-8.2)
[2018-09-06] MEDS ORDERED: IOHEXOL 300 MG/ML 75 ML VIAL. IV ONE (10:15)
--- NOTE | 2018-09-06 10:44 | RAD ---
PQRS Compliance Statement: One or more of the following individualized dose reduction techniques were utilized for this examination: 1. Automated exposure control 2. Adjustment of the mA and/or kV according to patient size 3. Use of iterative reconstruction technique CT ABD PELV W/ IV CONTRST ONLY Clinical Indication: Abd pain x 1 day with vomiting, hx of breast ca Comparison: CT abdomen and pelvis with contrast, June 02, 2018. Technique: Helical CT imaging of the abdomen and pelvis is performed after 75 cc of Omnipaque 300 IV contrast. Oral contrast not given. Findings: Lung bases are clear. Cardiac size normal. Cholecystectomy. Liver, spleen, common bile duct, pancreas, adrenal glands, and abdominal aorta are normal. Kidneys enhance symmetrically, no hydronephrosis. Stomach unremarkable. No dilated small bowel. Rectum mildly distended with stool. No colon wall thickening. Moderate colon stool volume. The appendix is normal. No abdominal adenopathy or free fluid. Urinary bladder is normal. Uterus unremarkable. Small bilateral adnexal cysts. No pelvic free fluid. No acute bone abnormality. IMPRESSION: 1. No acute abdominal or pelvic abnormality. 2. Moderate colon stool volume. Electronically signed by: Foreign Meehan MD (09/06/2018 10:41 AM) [facility]
--- NOTE | 2018-09-06 10:51 | PHYS DOC ---
Past History Past Medical History: Anxiety, Cancer, Depression, Other Past Surgical History: Cancer Surgery, Cholecystectomy, Other Alcohol Use: Occasionally Drug Use: None Adult General Chief Complaint Chief Complaint: NAUSEA/VOMITING/DIARRHEA HPI HPI Patient is a 37-year-old female who presents with complaint of abdominal cramping with nausea and vomiting that started at about midnight last night. She states that since that time she has not been able to keep anything down. She has had numerous episodes of vomiting. She rates her pain to be about a 6 out of 10. She states the pain is worsened around when she has to vomit. She denies any diarrhea or fever. She does also complain of a headache that she rates an 8 out of 10. Review of Systems Review of Systems Constitutional: Denies fever or chills [] Respiratory: Denies cough or shortness of breath [] GI: Complains of abdominal cramping with nausea and vomiting[] : Denies dysuria or hematuria [] Musculoskeletal: Denies back pain or joint pain [] Neurologic: Complains of headache[] All other systems were reviewed and found to be within normal limits, except as documented in this note. Current Medications Current Medications Current Medications Medications (Trade) Dose Ordered Sig/Kaylyn Start Time Stop Time Status Last Admin Dose Admin Fentanyl Citrate (Fentanyl 2ml Vial) 50 mcg PRN Q15MIN PRN 09/06/18 09:15 09/07/18 09:14 09/06/18 09:24 50 MCG Iohexol (Omnipaque 300 Mg/ml) 75 ml 1X ONCE 09/06/18 10:15 09/06/18 10:16 DC Ondansetron HCl (Zofran Odt) 4 mg 1X ONCE 09/06/18 09:00 09/06/18 09:01 DC 09/06/18 09:28 4 MG Prochlorperazine Edisylate (Compazine) 10 mg 1X ONCE 09/06/18 09:15 09/06/18 09:25 DC 09/06/18 09:28 10 MG Sodium Chloride 1,000 ml @ 1,000 mls/hr Q1H 09/06/18 09:10 09/06/18 10:09 DC 09/06/18 09:23 1,000 MLS/HR Allergies Allergies Allergies Coded Allergies Type Severity Reaction Last Updated Verified No Known Drug Allergies 02/24/17 No Physical Exam Physical Exam Constitutional: Well developed, well nourished, no acute distress, non-toxic appearance. [] HENT: Normocephalic, atraumatic, bilateral external ears normal, oropharynx moist, no oral exudates, nose normal. [] Eyes: PERRLA, EOMI, conjunctiva normal, no discharge. [] Neck: Normal range of motion, no tenderness, supple, no stridor. [] Cardiovascular:Heart rate regular rhythm [] Lungs & Thorax: Bilateral breath sounds clear to auscultation [] Abdomen: Bowel sounds normal, soft, with epigastric tenderness. [] Skin: Warm, dry, no erythema, no rash. [] Extremities: No tenderness, no cyanosis, no clubbing, ROM intact, no edema. [] Neurologic: Alert and oriented X 3, normal motor function, normal sensory function, no focal deficits noted. [] Current Patient Data Vital Signs Vital Signs Date Time Temp Pulse Resp B/P (MAP) Pulse Ox O2 Delivery O2 Flow Rate FiO2 09/06/18 08:30 97.8 83 20 100 Room Air Lab Results Laboratory Tests Test 09/06/18 09:09 09/06/18 10:37 White Blood Count 9.2 x10^3/uL (4.0-11.0) Red Blood Count 4.25 x10^6/uL (3.50-5.40) Hemoglobin 13.8 g/dL (12.0-15.5) Hematocrit 39.6 % (36.0-47.0) Mean Corpuscular Volume 93 fL (79-100) Mean Corpuscular Hemoglobin 33 pg (25-35) Mean Corpuscular Hemoglobin Concent 35 g/dL (31-37) Red Cell Distribution Width 12.4 % (11.5-14.5) Platelet Count 266 x10^3/uL (140-400) Neutrophils (%) (Auto) 90 % (31-73) H Lymphocytes (%) (Auto) 7 % (24-48) L Monocytes (%) (Auto) 3 % (0-9) Eosinophils (%) (Auto) 0 % (0-3) Basophils (%) (Auto) 0 % (0-3) Neutrophils # (Auto) 8.2 x10^3uL (1.8-7.7) H Lymphocytes # (Auto) 0.7 x10^3/uL (1.0-4.8) L Monocytes # (Auto) 0.2 x10^3/uL (0.0-1.1) Eosinophils # (Auto) 0.0 x10^3/uL (0.0-0.7) Basophils # (Auto) 0.0 x10^3/uL (0.0-0.2) Sodium Level 143 mmol/L (136-145) Potassium Level 4.0 mmol/L (3.5-5.1) Chloride Level 107 mmol/L (98-107) Carbon Dioxide Level 28 mmol/L (21-32) Anion Gap 8 (6-14) Blood Urea Nitrogen 10 mg/dL (7-20) Creatinine 0.6 mg/dL (0.6-1.0) Estimated GFR (Cockcroft-Gault) 111.3 BUN/Creatinine Ratio 17 (6-20) Glucose Level 106 mg/dL (70-99) H Calcium Level 8.7 mg/dL (8.5-10.1) Total Bilirubin 0.3 mg/dL (0.2-1.0) Aspartate Amino Transferase (AST) 20 U/L (15-37) Alanine Aminotransferase (ALT) 22 U/L (14-59) Alkaline Phosphatase 70 U/L (46-116) Total Protein 7.2 g/dL (6.4-8.2) Albumin 4.1 g/dL (3.4-5.0) Albumin/Globulin Ratio 1.3 (1.0-1.7) Lipase 138 U/L (73-393) POC Urine HCG, Qualitative hcg negative (Negative) EKG EKG [] Radiology/Procedures Radiology/Procedures [] Impressions: IMPRESSION: 1. No acute abdominal or pelvic abnormality. 2. Moderate colon stool volume. Course & Med Decision Making Course & Med Decision Making Pertinent Labs and Imaging studies reviewed. (See chart for details) [] Dragon Disclaimer Dragon Disclaimer This electronic medical record was generated, in whole or in part, using a voice recognition dictation system. Departure Departure: Impression: Primary Impression: Nausea and vomiting Disposition: HOME, SELF-CARE Condition: STABLE Referrals: HIEN WOLF (PCP) Patient Instructions: Nausea and Vomiting Problem Qualifiers Primary Impression: Nausea and vomiting Vomiting type: bilious vomiting Qualified Codes: R11.14 - Bilious vomiting SUSHMA ANAND Jr. DO Sep 06, 2018 10:51
[2018-09-06 10:53] LABS: CLARITY,URINE HAZY; COLOR,URINE YELLOW
[2018-09-06 10:54] LABS: BACTERIA,URINE FEW /HPF (0-FEW); BILIRUBIN,URINE NEG (NEG); GLUCOSE,URINE NEG (NEG); NITRITE,URINE NEG (NEG); SQUAMOUS EPITHELIAL CELL,UR MOD /LPF; UROBILINOGEN,URINE 0.2 mg/dL (0.2 mg/dL)
[2018-09-06] MEDS ORDERED: ONDANSETRON PF 4 MG/2 ML VIAL. IV ONE (11:00)
[2018-09-06] MEDS ORDERED: ONDA4TAB10 SL (11:47)
[2018-09-06 12:00] VITALS: BP 101/48
== END 2018-09-06 12:00 | disposition home or self-care (01) ==
LOC: ER 08:30
DX: R11.14 Bilious vomiting (principal); R10.13 Epigastric pain; R51 Headache; Z90.49 Acquired absence of other specified parts of digestive tract
CPT/HCPCS: 36415; 74177; 80053; 81001; 81025; 83690; 85025; 96361; 96374; 96375; 99285; J0780; J2405; J3010; Q0162; J7030